=== PATIENT | female | born 1945 | race Caucasian/White ===

== ENCOUNTER → 2018-12-02 | Outpatient (CLI) | payer MEDICARE ==
--- NOTE | 2018-12-02 11:21 | XR ---
EXAMINATION TYPE: XR cervical spine limited DATE OF EXAM: 12/02/2018 COMPARISON: NONE HISTORY: 73-year-old female with neck pain, cervicalgia TECHNIQUE: 3 views FINDINGS: Degenerative changes of the C1 dens articulation. No prevertebral soft tissue thickening. Moderate di sc/endplate degenerative change particularly in the mid to lower cervical spine. Alignment is maintai gaby. Facet and uncovertebral joint arthropathy greatest in the mid to lower cervical spine. Normal od ontoid view. 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 No malalignment or prevertebral soft tissue swelling seen.
--- NOTE | 2018-12-02 11:23 | XR ---
EXAMINATION TYPE: XR lumbar spine 2 or 3V DATE OF EXAM: 12/02/2018 COMPARISON: NONE HISTORY: 73-year-old female lumbar dysfunction, lower back pain TECHNIQUE: 3 views FINDINGS: Moderate disc/endplate degenerative change throughout. Hypertrophic facet arthropathy. Trace grade 1 retrolisthesis at L1-L2, L2-L3, and L3-L4. Mild superior endplate deformity of L1 is age indeterminat e. IMPRESSION: 1. Moderate disc/endplate degenerative change throughout. 2. Hypertrophic facet arthropathy throughout. Degenerative grade 1 retrolisthesis from L1 through L4 levels. 3. Mild superior endplate compression deformity of L1 is age indeterminate. Correlate for any focal p ain at this level. No apparent retropulsion towards the spinal canal.
== END | disposition home or self-care (01) ==
LOC: RADXRMAIN 09:58
PROVIDERS: ATTEND Chiropractor
DX: M47.812 Spondylosis without myelopathy or radiculopathy, cervical region (principal); M43.16 Spondylolisthesis, lumbar region; M47.816 Spondylosis without myelopathy or radiculopathy, lumbar region; M46.96 Unspecified inflammatory spondylopathy, lumbar region; G95.29 Other cord compression
CPT/HCPCS: 72040; 72100

== ENCOUNTER → 2021-05-04 | Outpatient (CLI) | payer MEDICARE ==
--- NOTE | 2021-05-05 07:59 | ECHOF ---
Referral Reason:R01.1 Cardiac murmur MEASUREMENTS -------- HEIGHT: 152.4 cm WEIGHT: 55.3 kg BP: RVIDd: 2.9 cm (< 3.3) IVSd: 0.9 cm (0.6 - 1.1) LVIDd: 4.0 cm (3.9 - 5.3) LVPWd: 1.1 cm (0.6 - 1.1) IVSs: 1.0 cm LVIDs: 2.9 cm LVPWs: 1.8 cm LAESV Index (A-L): 28.53 ml/m Ao Diam: 2.7 cm (2.0 - 3.7) AV Cusp: 1.2 cm (1.5 - 2.6) LA Diam: 3.5 cm (2.7 - 3.8) MV EXCURSION: 12.690 mm (> 18.000) MV EF SLOPE: 46 mm/s (70 - 150) EPSS: 0.6 cm MV E Faizan: 0.53 m/s MV DecT: 370 ms MV A Faizan: 0.94 m/s MV E/A Ratio: 0.56 RAP: 5.00 mmHg RVSP: 15.44 mmHg FINDINGS -------- Sinus rhythm. This was a technically good study. LV size, wall thickness and systolic function are normal, with an EF greater than 55%. The left camden tricular size is normal. The right ventricle is normal in size. The left atrial size is normal. The right atrial size is normal. There is mild aortic valve sclerosis. There is [id number] aortic regurgitation. Moderate mitral annular calcification present. Mild mitral regurgitation is present. Mild tricuspid regurgitation present. Right ventricular systolic pressure is normal at < 35 mmHg. There is no pulmonic regurgitation present. There is no pericardial effusion. CONCLUSIONS -------- 1. LV size, wall thickness and systolic function are normal, with an EF greater than 55%. 2. The left ventricular size is normal. 3. The right ventricle is normal in size. 4. The left atrial size is normal. 5. The right atrial size is normal. 6. There is mild aortic valve sclerosis. 7. There is iyii-ke-xbyumjel aortic regurgitation. 8. Moderate mitral annular calcification present. 9. Mild mitral regurgitation is present. 10. Mild tricuspid regurgitation present. 11. There is no pericardial effusion. PRESCHOOL ASSISTANT TEACHER: Megha Allen RDCS
== END | disposition home or self-care (01) ==
LOC: RADECHMAIN 16:34
PROVIDERS: ATTEND Family Medicine
DX: I08.3 Combined rheumatic disorders of mitral, aortic and tricuspid valves (principal)
CPT/HCPCS: 93306

== ENCOUNTER → 2022-01-19 | Outpatient (CLI) | payer MEDICARE ==
--- NOTE | 2022-01-21 14:38 | CT ---
EXAMINATION TYPE: CT angio abd aorta w/Runoff CT DLP: 824.7 mGycm, Automated exposure control for dose reduction was used. DATE OF EXAM: 01/19/2022 6:47 PM COMPARISON: None. 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 3-D reformats and maximum intensity projection format we re performed on a separate workstation. Then the abdomen was scanned after administration of 90 cc of Isovue 370 IV contrast. 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 Atherosclerotic plaquing is identified within the abdominal aorta. The origins of the super ior mesenteric artery, renal arteries, inferior mesenteric artery, and celiac axis are patent. There are 2 renal arteries bilaterally. The iliac vessels are patent with calcified and noncalcified plaque along the course. There is modera te atherosclerotic noncalcified plaque along the course of external iliac arteries. CTA Lower extremities: Right: The common femoral and superficial femoral arteries are patent. There is calcified and noncalc ified plaquing of the common femoral artery. The popliteal artery is patent. Anterior and posterior t ibial arteries as well as the peroneal artery are patent. There is a diminutive appearance of the pos terior tibial artery along its course with scattered atherosclerosis. Anterior tibial artery crosses the ankle. The posterior tibial artery does not clearly cross the ankle and there is nonvisualization of the more distal portions. Left: The common femoral artery is patent. The superficial femoral artery demonstrates occlusion star ting at the mid/distal aspect and extending approximately 9 cm in length. There are collaterals with reconstitution at the level of the femoral condyles/popliteal artery. There is a diminutive appearanc e of the posterior tibial artery with scattered atherosclerosis. There is short segment of suspected occlusion of the distal portion with reconstitution at the ankle of the posterior tibial artery. VISCERA: The liver, spleen, adrenal glands, kidneys, pancreas, and gallbladder are not optimally enha nced due the arterial phase utilized. LIVER: Unremarkable GALLBLADDER AND BILE DUCTS: The gallbladder is surgically absent. PANCREAS: Unremarkable. SPLEEN: Unremarkable. ADRENAL GLANDS: Unremarkable. KIDNEYS AND URETERS: No evidence of hydronephrosis or renal calculus. The ureters are unremarkable. PELVIS BLADDER: Unremarkable REPRODUCTIVE: Unremarkable. ABDOMEN & PELVIS STOMACH AND BOWEL: Scattered diverticula are noted throughout the colon. No evidence of bowel obstruc tion. PERITONEUM: No evidence of pneumoperitoneum or free fluid. VASCULATURE: No evidence of aortic aneurysm. MUSCULOSKELETAL: No acute osseous abnormalities. Multilevel disc degeneration changes seen throughout the spine. LYMPH NODES: No gross evidence for lymphadenopathy. SOFT TISSUE/ABDOMINAL WALL: Unremarkable IMPRESSION Left: 1. 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 2. Diminutive appearance of the posterior tibial artery with suspected segment of occlusion in the di stal portion with reconstitution at the ankle. 3. Calcified and noncalcified plaque of the external iliac and common femoral arteries. Right: 1. Diminutive appearance of the posterior tibial artery with nonvisualization of the more distal port ions. The anterior tibial artery crosses the ankle.
== END | disposition home or self-care (01) ==
LOC: RADCTMAIN 16:53
PROVIDERS: ATTEND Surgery
DX: I74.3 Embolism and thrombosis of arteries of the lower extremities (principal)
CPT/HCPCS: 82565; 84520; 75635; 36415; Q9967

== ENCOUNTER → 2022-11-20 | Outpatient (CLI) | payer MEDICARE ==
--- NOTE | 2022-11-20 09:23 | US ---
EXAMINATION TYPE: US abdomen limited DATE OF EXAM: 11/20/2022 COMPARISON: CTA with runoff January 19, 2022 CLINICAL INDICATION: Female, 77 years old with history of R19.09 INTRA ABD AND PELVIC SWELLING, MASS AND LUMP; Lump RUQ . Assess for hernia at location of: RUQ lump area inferior to ribs. Scanned area of concern calcified area seen 1 cm. Curvilinear calcified lesion in the deep subcutaneous tissue measures approximately 1.0 cm long axis likely corresponds to lesion seen on CT near axial image 41. IMPRESSION: As above. Focal dystrophic calcification or even possible foreign body could have this a ppearance. Former is favored. Real-time scanning was performed by the cutter inspector utilizing Valsalva and additional dynamic maneuve rs to assess for hernia. Images of the contralateral side were also acquired for direct comparison.
== END | disposition home or self-care (01) ==
LOC: RADUSWWP 08:33
PROVIDERS: ATTEND Family Medicine
DX: R19.09 Other intra-abdominal and pelvic swelling, mass and lump (principal)
CPT/HCPCS: 76705